=== PATIENT | male | born 1980 | race Caucasian/White ===

== ENCOUNTER 2020-03-13 03:14 | Inpatient (IN) | payer OTHER ==
[~2020-03-13] VITALS: Ht 172.7 cm; Wt 92.5 kg
[2020-03-13 03:18] VITALS: BP 156/94
--- NOTE | 2020-03-13 03:24 | NUR ---
PT AMBULATED TOP ER BED 7 Addendum: 03/13/20 at 0324 by MEDAJR PT AMBULATED TO ER BED 7
--- NOTE | 2020-03-13 03:32 | NUR ---
39M PT HAS C/O EPIGASTRIC ABD PAIN 8/10 SHARP, CONTINOUS X 1 DAY. PT ADMITS TO BRIGHT RED STOOL, AND DIARRHEA X 2 DAYS. PT DENIES N/V. ABDOMEN FIRM AND TENDER. PT HAD APPENDECTOMY X 30 YEARS AGO. AFEBRILE. NEGATIVE COVID SCREEN. PMHX: HTN, APPENDECTOMY RX: OTC MEDS FOR HEARTBURN
--- NOTE | 2020-03-13 03:33 | NUR ---
ERMD BEDSIDE EVALUATING PT
[2020-03-13] MEDS ORDERED: NACL 0.9% 1,000 ML IV ONE (03:35)
[2020-03-13] MEDS ORDERED: MORPHINE SULFATE 2 MG/ML SYR IVP ONE (03:35)
[2020-03-13] MEDS ORDERED: KETOROLAC 30 MG/ML VIAL IVP ONE (03:35)
[2020-03-13] MEDS ORDERED: PANTOPRAZOLE 40 MG INJ VIAL IVP ONE (03:35)
--- NOTE | 2020-03-13 03:44 | NUR ---
PT TAKEN TO CT VIA W/C
[2020-03-13 03:52] LABS: BASOPHILS # (AUTO) 0.1 K/uL (0.00-0.22); BASOPHILS % (AUTO) 0.8 % (0.0-2.0); EOSINOPHILS # (AUTO) 0.4 K/uL (0-0.4); EOSINOPHILS % (AUTO) 3.9 % (0.0-4.0); HEMATOCRIT 40.5 % (36-52); HEMOGLOBIN 13.3 g/dL (12.0-18.0); LYMPHOCYTES # (AUTO) 1.5 K/uL (2.0-11.5); LYMPHOCYTES % (AUTO) 13.8 % (20.5-51.1); MEAN CORPUSCULAR HEMOGLOBIN 20 pg (27-31); MEAN CORPUSCULAR HGB CONC 33 g/dL (33-37); MEAN CORPUSCULAR VOLUME 60.5 fL (80-94); MONOCYTES # (AUTO) 0.8 K/uL (0.8-1.0); MONOCYTES % (AUTO) 7.1 % (1.7-9.3); NEUTROPHILS # (AUTO) 8.2 K/uL (1.8-7.7); NEUTROPHILS % (AUTO) 74.4 % (42.2-75.2); PLATELET COUNT (AUTO) 208 K/uL (140-450); RED CELL DISTRIBUTION WIDTH 15.4 % (11.6-13.7)
--- NOTE | 2020-03-13 03:56 | NUR ---
PT RETURNED FROM CT
--- NOTE | 2020-03-13 04:12 | NUR ---
PT MEDICATED WITH TORADOL, MORPHINE AND PROTONIX VIA R AC IV. PT TOLERATED PROCEDURE WELL. FLUID NS BOLUS INFUSION INITIATED. PT IN BED RESTING. HOB ELEVATED, NO FURTHER NEEDS AT THIS TIME. BED LOWEST AND LOCKED, RAILS UP X1
[2020-03-13 04:15] LABS: PROTHROMBIN TIME 8.9 secs (10.8-13.4)
[2020-03-13 04:15] LABS: APPEARANCE,URINE CLEAR (CLEAR); BILIRUBIN,URINE NEGATIVE (NEGATIVE); BLOOD, URINE NEGATIVE (NEGATIVE); COLOR,URINE YELLOW (YELLOW); LEUKOCYTE ESTERASE ,URINE NEGATIVE (NEGATIVE); NITRITE, URINE NEGATIVE (NEGATIVE); PH,URINE 7.5 (5.0-9.0); UGLUCOSE NEGATIVE (NEGATIVE)
[2020-03-13 04:18] LABS: ALBUMIN 4.8 g/dL (3.4-5.0); ANION GAP 17.9 (8-16); CARBON DIOXIDE 23.9 mmol/L (21-32); CREATININE 0.9 mg/dL (0.6-1.3)
[2020-03-13 04:22] LABS: POTASSIUM 2.8 mmol/L (3.5-5.1)
--- NOTE | 2020-03-13 04:22 | NUR ---
CRITICAL LAB VALUE POTASSIUM 2.8. DR. MAN NOTIFIED
[2020-03-13] MEDS ORDERED: NITROGLYCERIN 2% 1 GM PKT TP ONE (04:30)
[2020-03-13] MEDS ORDERED: ASPIRIN 81 MG TAB.CHEW PO ONE (04:30)
[2020-03-13] MEDS ORDERED: POTASSIUM CHLORIDE 10 MEQ TABER PO ONE ×2 (04:35→06:40)
[2020-03-13] MEDS ORDERED: ORE25 PO (04:42)
[2020-03-13] MEDS ORDERED: ACET-8983 PO (04:42)
[2020-03-13] MEDS ORDERED: LISI-420 PO (04:42)
[2020-03-13] MEDS ORDERED: OMEP20EC11 PO (04:42)
--- NOTE | 2020-03-13 04:45 | NUR ---
PT MEDICATED WITH 2 BABY ASPIRINS, 40MEQ K-DUR, AND NITRO APPLIED TO LEFT CHEST WALL 1 INCH. NO FURTHER NEEDS AT THIS TIME.
--- NOTE | 2020-03-13 04:49 | NUR ---
PT REPORTS DECREASED PAIN FROM 10/10 TO 6/10 AND TOLERABLE.
[2020-03-13 06:10] VITALS: BP 139/93
--- NOTE | 2020-03-13 06:15 | NUR ---
RECEIVED BEDSIDE REPORT FROM ED RN FOR PT'S CONTINUITY OF CARE. 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 PER ED RN AND CONFIRMED PLACEMENT, NITRO PATCH IN PLACE ON LEFT UPPER CHEST APPLIED AT 0440. ORIENTED PT TO THE HOSPITAL SURROUNDINGS AND EXPLAINED THE HOSPITAL ROUTINE, PT VERBALIZED UNDERSTANDING. VS CHECKED AND CHARTED. SAFETY MEASURES IN PLACE, AND CALL LIGHT IS WITHIN REACH. WILL ENDORSE PT TO AM SHIFT RN FOR PT'S CONTINUITY OF CARE.
--- NOTE | 2020-03-13 06:18 | NUR ---
Patient will be admitted to care of DR BARBOUR. Admited to TELE. Will go to room 111A. Belongings list completed. Report to MICHAEL DEVINE.
[2020-03-13] MEDS ORDERED: ACETAMINOPHEN 325 MG TAB PO PRN (06:45)
[2020-03-13] MEDS ORDERED: DOCUSATE SODIUM 100 MG GELCAP PO PRN (06:45)
[2020-03-13] MEDS ORDERED: ONDANSETRON 4 MG/2 ML VIAL IM/IVP PRN (06:45)
--- NOTE | 2020-03-13 07:05 | NUR ---
RECEIVED BEDSIDE REPORT FROM NIGHTSHIFT NURSE. PT RESTING IN BED UPON ARRIVAL. RESPIRATIONS EVEN AND UNLABORED WITH NO SOB OR RESPIRATORY DISTRESS. SKIN WARM AND DRY TO TOUCH. IV SITE IN RAC 18G IS CLEAN, DRY, AND INTACT. SAFETY MEASURES IN PLACE. WILL CONTINUE TO MONITOR
[2020-03-13] MEDS: MORPHINE SULFATE 2 MG/ML SYR IVP PRN ×4 (08:08→22:01)
--- NOTE | 2020-03-13 08:12 | NUR ---
ADMINISTERED SCHED MED PRESCRIBED PER MD ORDER. PT TOLERATED WELL. PT ALSO COMPLAINED OF SEVERE PAIN. PRN PAIN MEDICATION ADMINISTERED PRESCRIBED PER MD ORDER. WASTE WAS VERIFIED WITH SECOND RN. MEDICATION EDUCATION PERFORMED. PT VERBALIZED UNDERSTANDING. SAFETY MEASURE IN PLACE. WILL CONTINUE TO MONITOR
[2020-03-13] MEDS ORDERED: POTASSIUM CHLORIDE 10 MEQ TABER PO SCH (09:00)
[2020-03-13 09:01] LABS: BARBITURATE, URINE NEGATIVE ng/ml (NEG <=200); BENZODIAZEPINE, URINE NEGATIVE ng/mL (NEG <=200); CANNABINOID, URINE NEGATIVE ng/mL (NEG <=50); COCAINE, URINE NEGATIVE ng/mL (NEG <=300); OPIATE, URINE POSITIVE ng/mL (NEG <=2000); PHENCYCLIDINE SCREEN,URINE NEGATIVE ng/mL (NEG <=25)
--- NOTE | 2020-03-13 09:06 | NUR ---
PATIENT HAS BEEN SCREENED AND CATEGORIZED MODERATE NUTRITION RISK. PATIENT WILL BE SEEN WITHIN 3-5 DAYS OF ADMISSION. 03/15/20 03/17/[address]
[2020-03-13 09:08] LABS: AMYLASE 51 U/L (25-115); CHOL/HDL RATIO 4.8 (1-4.5); FREE T4 (FREE THYROXINE) 1.52 ng/dL (0.76-1.46); HDL CHOLESTEROL 39 mg/dL (40-60); MAGNESIUM 2.4 mg/dL (1.8-2.4); PHOSPHORUS 3.6 mg/dL (2.5-4.9); TRIGLYCERIDES 939 mg/dL (30-150)
[2020-03-13] MEDS: NACL 0.9% 1,000 ML IV SCH ×2 (09:24→16:55)
[2020-03-13 09:45] LABS: LIPASE 383 U/L (73-393)
--- NOTE | 2020-03-13 09:45 | NUR ---
PT FAMILY BROUGHT IN BLACK BACKPACK FOR PT. BACKPACK GIVEN TO PATIENT. SAFETY MEASURES IN PLACE. WILL CONTINUE TO MONITOR
[2020-03-13] MEDS ORDERED: LORazepam 2 MG/ML VIAL IM/IVP PRN (09:50)
[2020-03-13] MEDS ORDERED: DICYCLOMINE HCL LIQUID 20 MG, ALUMINUM HYD/MAG/SIMETHICONE 30 ML, LIDOCAINE VISCOUS 2% ... PO SCH ×3 (10:00)
[2020-03-13 10:06] LABS: THYROID STIMULATING HORMONE 2.98 uIU/mL (0.34-3.74)
[2020-03-13] MEDS ORDERED: DICYCLOMINE HCL LIQUID 10 MG/5 ML UDC ONE (10:36)
[2020-03-13] MEDS ORDERED: ALUMINUM HYD/MAG/SIMETHICONE 30 ML UDC ONE (10:37)
[2020-03-13] MEDS ORDERED: LIDOCAINE VISCOUS 2% 20 ML UDC ONE (10:37)
--- NOTE | 2020-03-13 10:40 | NUR ---
ADMINISTERED SCHED MED PRESCRIBED PER MD ORDER. PT TOLERATED WELL. MEDICATION EDUCATION PERFORMED. PT VERBALIZED UNDERSTANDING. SAFETY MEASURE IN PLACE. WILL CONTINUE TO MONITOR
--- NOTE | 2020-03-13 10:43 | NUR ---
DC PLANNIN YRS OLD MALE PATIENT WAS ADMITTED FROM HOME WITH A DX OF CHEST PAIN R/O ACS. PT HAS NO MEDICAL HISTORY . TROP 0.050,0.068 AND PENDING FOR THE 3RD TROP, K+ 2.9 40 MG PO POTASSIUM GIVEN. . CXR NEGATIVE CT ABD/PELVIS SHOWED NO BOWEL OBSTRUCTION AND LARGE FATTY INFILTRATED LIVER. CONSULTED WITH BLADE GROOVER DR SAMUEL . DC PLAN TO GO HOME WHEN STABLE CM TO FOLLOW.
[2020-03-13] MEDS ORDERED: LISINOPRIL 20 MG TAB PO SCH (11:10)
[2020-03-13] MEDS ORDERED: PANTOPRAZOLE 40 MG INJ VIAL IVP SCH (11:10)
--- NOTE | 2020-03-13 11:45 | NUR ---
HOURLY ROUNDING. PT RESTING IN BED UPON ARRIVAL. ABLE TO MAKE NEEDS KNOWN. RESPIRATIONS EVEN AND UNLABORED WITH NO SOB OR RESPIRATORY DISTRESS. SKIN WARM AND DRY TO TOUCH. SAFETY MEASURES IN PLACE. WILL CONTINUE TO MONITOR
--- NOTE | 2020-03-13 11:55 | NUR ---
Blood Bank Worker Note: Basic Screen: Yes High Risk DC Screen [place]: KYLAH CONRAD Home Relationship: Pre-Admission Living Arrangements: Lives with Other Prior ADL Independent Current Home Health Name/Tel: N/A Current DME/02 Name/Tel: N/A Current Hospice Name/Tel: N/A Current Dialysis Name/Tel: N/A Healthcare Decision Maker: Patient Advance Directive No Physician Orders for Life Sustaining Treatment Form No Patient/Family Have Educational Needs No Discipline: Case Mgt/Social Svcs Tentative Discharge Plan/Destination: No Needs Identified Will require assistance post discharge: No Referred to Fraternity Adviser: No Tentative Discharge Plan Summary: Patient is a 39-year-old male admitted for chest pain. Patient has PMHX of hypertension. Patientw as admitted from home where he lives with his and children. SW contacted patient's Kylah Conrad [phone] to verify demographics. Per Kylah, patient is independent with ADLs and reports episodes of PTSD. Kylah stated that patient does not require mental health services. Kylah reports no history of substance abuse. Tentative discharge plan is for patient to return home. No further needs identified. Signature: MONY Ulrich Date: Mar 13, 2020 Time: 11:52
[2020-03-13 12:00] VITALS: BP 131/83
[2020-03-13] MEDS: SUCRALFATE 1 GM TAB PO SCH ×3 (12:32→20:46)
--- NOTE | 2020-03-13 12:33 | NUR ---
PT CALLED AND COMPLAINED OF SEVERE PAIN. PRN PAIN MEDICATION ADMINISTERED PRESCRIBED PER MD ORDER. PT TOLERATED WELL. MEDICATION EDUCATION PERFORMED. PT VERBALIZED UNDERSTANDING. SAFETY MEASURES IN PLACE. WILL CONTINUE TO MONITOR
[2020-03-13 13:58] LABS: BASOPHILS # (AUTO) 0.1 K/uL (0.00-0.22); BASOPHILS % (AUTO) 0.9 % (0.0-2.0); EOSINOPHILS # (AUTO) 0.2 K/uL (0-0.4); EOSINOPHILS % (AUTO) 1.8 % (0.0-4.0); HEMATOCRIT 40.3 % (36-52); HEMOGLOBIN 12.8 g/dL (12.0-18.0); LYMPHOCYTES # (AUTO) 1.4 K/uL (2.0-11.5); LYMPHOCYTES % (AUTO) 10.3 % (20.5-51.1); MEAN CORPUSCULAR HEMOGLOBIN 20 pg (27-31); MEAN CORPUSCULAR HGB CONC 32 g/dL (33-37); MEAN CORPUSCULAR VOLUME 61.5 fL (80-94); MONOCYTES # (AUTO) 0.8 K/uL (0.8-1.0); MONOCYTES % (AUTO) 5.5 % (1.7-9.3); NEUTROPHILS # (AUTO) 11.4 K/uL (1.8-7.7); NEUTROPHILS % (AUTO) 81.5 % (42.2-75.2); PLATELET COUNT (AUTO) 212 K/uL (140-450); RED BLOOD CELL COUNT(AUTO) 6.55 MIL/uL (4.20-6.10); RED CELL DISTRIBUTION WIDTH 16.1 % (11.6-13.7); WHITE BLOOD COUNT (AUTO) 13.9 K/uL (4.8-10.8)
--- NOTE | 2020-03-13 14:15 | NUR ---
PT CALLED AND SAID THAT HE HAD A BOWEL MOVEMENT. STOOL SAMPLE AND OCCULT BLOOD COLLECTED AND SENT TO LAB. SAFETY MEASURES IN PLACE. WILL CONTINUE TO MONITOR
[2020-03-13 14:25] LABS: ANION GAP 17.5 (8-16); CARBON DIOXIDE 21.6 mmol/L (21-32); CREATININE 0.8 mg/dL (0.6-1.3); POTASSIUM 4.1 mmol/L (3.5-5.1)
[2020-03-13 16:00] VITALS: BP 136/74
--- NOTE | 2020-03-13 16:56 | NUR ---
ADMINISTERED SCHED MED PRESCRIBED PER MD ORDER. PT TOLERATED WELL. MEDICATION EDUCATION PERFORMED. PT VERBALIZED UNDERSTANDING. PT CALLED AND COMPLAINED OF SEVERE PAIN. PRN PAIN MEDICATION ADMINISTERED PRESCRIBED PER MD ORDER. PT TOLERATED WELL. MEDICATION EDUCATION PERFORMED. PT VERBALIZED UNDERSTANDING. SAFETY MEASURES IN PLACE. WILL CONTINUE TO MONITOR
--- NOTE | 2020-03-13 19:07 | NUR ---
ENDORSED AT BEDSIDE TO NIGHTSHIFT NURSE. PT IS STABLE
--- NOTE | 2020-03-13 19:08 | NUR ---
RECEIVED BEDSIDE REPORT FROM DAY SHIFT NURSE, PT AAOX4. NO SOB NOTED. IV SITE ON RAC, 18G, PATENT, INTACT, AND ASYMPTOMATIC. BOARD UPDATED, SKIN INTACT, WARM AND DRY TO TOUCH. POC REVIEWED AND PT VERBALIZED UNDERSTANDING. SAFETY MEASURES IN PLACE. CALL LIGHT IN REACH. WILL CONTINUE TO MONITOR.
[2020-03-13 20:00] VITALS: BP 116/71
[2020-03-13] MEDS: METOPROLOL 25 MG TAB PO SCH (20:45)
[2020-03-13] MEDS: ATORVASTATIN 20 MG TAB PO SCH (20:46)
--- NOTE | 2020-03-13 20:48 | NUR ---
GIVEN LIPITOR, METOPROLOL, AND CARAFATE MD ORDERED. PT TOLERATED WELL.
--- NOTE | 2020-03-13 22:01 | NUR ---
PT C/O ABD PAIN 06/29, GIVEN MORPHINE MD ORDERED. PT TOLERATED WELL.
[2020-03-14] VITALS: BP 119/73
--- NOTE | 2020-03-14 00:02 | NUR ---
VS CHECKED, WITHIN PT'S BASELINE. WILL CONTINUE TO MONITOR.
[2020-03-14] MEDS: NACL 0.9% 1,000 ML IV SCH ×2 (00:54→13:51)
--- NOTE | 2020-03-14 02:36 | NUR ---
PT SLEEPING IN BED COMFORTABLY. NO ACUTE DISTRESS NOTED.
[2020-03-14 04:00] VITALS: BP 111/75
--- NOTE | 2020-03-14 04:00 | NUR ---
VS CHECKED, WITHIN PT'S BASELINE, WILL CONTINUE TO MONITOR.
--- NOTE | 2020-03-14 06:02 | NUR ---
PT SLEEPING IN BED COMFORTABLY. NO ACUTE DISTRESS NOTED.
[2020-03-14 06:05] LABS: ANION GAP 15.4 (8-16); CARBON DIOXIDE 22.6 mmol/L (21-32); CREATININE 0.7 mg/dL (0.6-1.3)
[2020-03-14 06:36] LABS: CHOL/HDL RATIO 3.6 (1-4.5)
[2020-03-14 06:42] LABS: BASOPHILS # (AUTO) 0.1 K/uL (0.00-0.22); BASOPHILS % (AUTO) 0.6 % (0.0-2.0); EOSINOPHILS # (AUTO) 0.2 K/uL (0-0.4); EOSINOPHILS % (AUTO) 1.8 % (0.0-4.0); HEMATOCRIT 34.4 % (36-52); HEMOGLOBIN 10.8 g/dL (12.0-18.0); LYMPHOCYTES # (AUTO) 1.2 K/uL (2.0-11.5); LYMPHOCYTES % (AUTO) 10.4 % (20.5-51.1); MEAN CORPUSCULAR HEMOGLOBIN 20 pg (27-31); MEAN CORPUSCULAR HGB CONC 32 g/dL (33-37); MEAN CORPUSCULAR VOLUME 61.9 fL (80-94); MONOCYTES # (AUTO) 0.7 K/uL (0.8-1.0); MONOCYTES % (AUTO) 6.7 % (1.7-9.3); NEUTROPHILS % (AUTO) 80.5 % (42.2-75.2); PLATELET COUNT (AUTO) 185 K/uL (140-450); RED BLOOD CELL COUNT(AUTO) 5.56 MIL/uL (4.20-6.10); RED CELL DISTRIBUTION WIDTH 15.8 % (11.6-13.7); WHITE BLOOD COUNT (AUTO) 11.2 K/uL (4.8-10.8)
--- NOTE | 2020-03-14 06:57 | NUR ---
PT IN STABLE CONDITION. WILL ENDORSE TO DAY SHIFT NURSE FOR CONTINUOUS CARE.
--- NOTE | 2020-03-14 07:15 | NUR ---
RECEIVED PT FROM SHEET HEATER HELPER NURSEYESICA, PT IS AWAKE AND ON ROOM AIR, SIDE RAILS ARE UP AND CALL LIGHT WITHIN REACH, IV LINE ON THE RT AC G. 18 WITH NS INFUSING AT 120ML/HR, INTACT, PT DENIES PAIN AND NO SOB NOTED, WILL CONTINUE TO MONITOR PT.
[2020-03-14 08:00] VITALS: BP 119/71
[2020-03-14] MEDS: ECOTRIN 81 MG TABEC PO SCH (08:18)
[2020-03-14] MEDS: SUCRALFATE 1 GM TAB PO SCH ×4 (08:19→21:32)
[2020-03-14] MEDS: HYDROCHLOROTHIAZIDE 25 MG TAB PO SCH (08:20)
[2020-03-14] MEDS: PANTOPRAZOLE 40 MG TABEC PO SCH (08:20)
[2020-03-14] MEDS: MULTIVITAMIN 1 TAB PO SCH (08:20)
--- NOTE | 2020-03-14 08:20 | NUR ---
PT IS AWAKE AND BP IS 120/68, PULSE IS 84 MANUALLY, O2 SATURATION IS AT 100% ON ROOM AIR, PT WAS GIVEN AM SCHEDULED MEDICATIONS, TOLERATED MEDS, NO DISTRESS NOTED. WILL MONITOR PT
[2020-03-14] MEDS: THIAMINE 100 MG TAB PO SCH (08:21)
[2020-03-14] MEDS: METOPROLOL 25 MG TAB PO SCH ×2 (08:21→21:33)
[2020-03-14] MEDS: LISINOPRIL 20 MG TAB PO SCH (08:21)
--- NOTE | 2020-03-14 10:45 | NUR ---
PT IS SLEEPING RIGHT NOW, NO DISTRESS NOTED.
[2020-03-14 12:00] VITALS: BP 116/80
--- NOTE | 2020-03-14 13:51 | NUR ---
PT WAS GIVEN THE SCHEDULED MEDICATIONS NOW.
[2020-03-14] MEDS ORDERED: SIMETHICONE 80 MG TAB.CHEW PO SCH (15:30)
[2020-03-14 16:00] VITALS: BP 115/71
--- NOTE | 2020-03-14 16:34 | NUR ---
PT WAS GIVEN MEDICATIONS TO RELIEVE GAS PAIN NOW AND REDUCE ACIDITY IN STOMACH, TOLERATED AND WILL MONITOR PT.
--- NOTE | 2020-03-14 19:35 | NUR ---
ENDORSED PT TO QUARRY PLUG AND FEATHER DRILLER NURSE FOR CONTINUITY OF CARE.
--- NOTE | 2020-03-14 19:40 | NUR ---
RECEIVED PT IN STABLE CONDITION FROM AM NURSE. ON TELE MONITOR -SR. WITH NO C/O ANY DISCOMFORT NOR. PAIN HAS IVF INFUSING WELL ON THE RT AC G#18. CLEAR AND PATENT. PLAN OF CARE DISCUSSED AND VERBALIZED UNDERSTANDING. BE DON LOW POSITION. COOK RELIEF ALS UP X2 AND CALL LIGHT PLACED WITHIN REACH. WILL CONTINUE TO MONITOR.
[2020-03-14 20:00] VITALS: BP 114/79
[2020-03-14] MEDS ORDERED: SIMETHICONE 80 MG TAB.CHEW PO PRN (20:00)
[2020-03-14] MEDS: ATORVASTATIN 20 MG TAB PO SCH (21:33)
[2020-03-14] MEDS ORDERED: CRUSHER, PILL MC ONE (21:35)
--- NOTE | 2020-03-14 22:00 | NUR ---
PT IS AWAKE. PROVIDE WITH URINAL TO BE USED AT NIGHT.
[2020-03-15 00:10] VITALS: BP 102/60
--- NOTE | 2020-03-15 00:20 | NUR ---
VITAL SIGNS STABLE. NO C/O ANY PAIN NOTED. WILL CONTINUE TO MONITOR.
--- NOTE | 2020-03-15 02:30 | NUR ---
DEANNA HARRINGTON. PT ASLEEP. NO S/S OF ANY DISCOMFORT NOTED.
[2020-03-15 04:08] VITALS: BP 107/65
--- NOTE | 2020-03-15 05:00 | NUR ---
PT IS SLEEPING WELL. NO S/S OF ANY DISCOMFORT NOTED.
--- NOTE | 2020-03-15 07:30 | NUR ---
ENDORSED PT IN STABLE CONDITION TO AM NURSE.
--- NOTE | 2020-03-15 07:31 | NUR ---
RECEIVED REPORT FROM NIGHT NURSE FOR CONTINUITY OF CARE, PT IS ASLEEP, NO SIGNS OF DISTRESS NOTED, RESPIRATIONS ARE AND UNLABORED ON ROOM AIR, PT HAS RIGHT AC 18G SALINE LOCK, BED IN LOW POSITION, SAFETY MEASURES IN PLACE, UPDATED WHITEBOARD, ALL NEEDS MET AT THIS TIME, WILL CONTINUE TO MONITOR, CALL LIGHT WITHIN REACH.
[2020-03-15 08:00] VITALS: BP 115/88
[2020-03-15 08:35] LABS: ANION GAP 14.2 (8-16); CARBON DIOXIDE 26.9 mmol/L (21-32); CREATININE 0.6 mg/dL (0.6-1.3); POTASSIUM 4.1 mmol/L (3.5-5.1)
[2020-03-15] MEDS: PANTOPRAZOLE 40 MG TABEC PO SCH (08:36)
[2020-03-15] MEDS: ECOTRIN 81 MG TABEC PO SCH (08:36)
[2020-03-15] MEDS: METOPROLOL 25 MG TAB PO SCH (08:38)
[2020-03-15] MEDS: HYDROCHLOROTHIAZIDE 25 MG TAB PO SCH (08:38)
[2020-03-15] MEDS: SUCRALFATE 1 GM TAB PO SCH ×2 (08:38→13:16)
[2020-03-15] MEDS: THIAMINE 100 MG TAB PO SCH (08:39)
[2020-03-15] MEDS: LISINOPRIL 20 MG TAB PO SCH (08:39)
[2020-03-15] MEDS: MULTIVITAMIN 1 TAB PO SCH (08:39)
--- NOTE | 2020-03-15 08:41 | NUR ---
ADMINISTERED SCHEDULED MEDICATION, MEDICATION EDUCATION GIVEN, PT VERBALIZED UNDERSTANDING, PT TOLERATED MEDICATION WELL, PT STABLE, CALL LIGHT WITHIN REACH.
[2020-03-15 08:45] LABS: BASOPHILS # (AUTO) 0.1 K/uL (0.00-0.22); BASOPHILS % (AUTO) 0.6 % (0.0-2.0); EOSINOPHILS # (AUTO) 0.3 K/uL (0-0.4); EOSINOPHILS % (AUTO) 2.9 % (0.0-4.0); HEMATOCRIT 34.9 % (36-52); HEMOGLOBIN 11.1 g/dL (12.0-18.0); LYMPHOCYTES # (AUTO) 1.8 K/uL (2.0-11.5); LYMPHOCYTES % (AUTO) 18.1 % (20.5-51.1); MEAN CORPUSCULAR HEMOGLOBIN 20 pg (27-31); MEAN CORPUSCULAR HGB CONC 32 g/dL (33-37); MEAN CORPUSCULAR VOLUME 62.3 fL (80-94); MONOCYTES # (AUTO) 0.9 K/uL (0.8-1.0); NEUTROPHILS # (AUTO) 6.9 K/uL (1.8-7.7); NEUTROPHILS % (AUTO) 69.4 % (42.2-75.2); PLATELET COUNT (AUTO) 195 K/uL (140-450); RED BLOOD CELL COUNT(AUTO) 5.61 MIL/uL (4.20-6.10); RED CELL DISTRIBUTION WIDTH 15.8 % (11.6-13.7); WHITE BLOOD COUNT (AUTO) 9.9 K/uL (4.8-10.8)
[2020-03-15 08:57] LABS: MAGNESIUM 2.1 mg/dL (1.8-2.4); PHOSPHORUS 4.3 mg/dL (2.5-4.9)
--- NOTE | 2020-03-15 11:20 | NUR ---
PT AWAKE AND RESTING IN BED, PT IS STABLE, NO SIGNS OF DISTRESS NOTED, RESPIRATIONS ARE EVEN AND UNLABORED, CALL LIGHT WITHIN REACH.
[2020-03-15 12:00] VITALS: BP 133/64
--- NOTE | 2020-03-15 13:17 | NUR ---
ADMINISTERED SCHEDULED MEDICATION, MEDICATION EDUCATION GIVEN, PT VERBALIZED UNDERSTANDING, PT IS STABLE, NO SIGNS OF DISTRESSED NOTED, CALL LIGHT WITHIN REACH.
--- NOTE | 2020-03-15 13:55 | NUR ---
PT DISCHARGED HOME, DISCHARGED INSTRUCTIONS GIVEN, IV REMOVED, IV INTACT, NO BLEEDING AT THE IV SITE, PT STABLE, PT AMBULATED TO LOBBY WITH STEADY GAIT.
== END 2020-03-15 14:02 | disposition home or self-care (01) | DRG 391 ==
LOC: MED 03:14 → MTU 05:37
PROVIDERS: ADMIT General Practice; ATTEND General Practice
DX: K29.20 Alcoholic gastritis without bleeding (principal); I21.A1 Myocardial infarction type 2; E87.1 Hypo-osmolality and hyponatremia; E87.6 Hypokalemia; I10 Essential (primary) hypertension; I16.0 Hypertensive urgency; E66.9 Obesity, unspecified; E78.1 Pure hyperglyceridemia; E05.90 Thyrotoxicosis, unspecified without thyrotoxic crisis or storm; K76.0 Fatty (change of) liver, not elsewhere classified; G89.29 Other chronic pain; M54.9 Dorsalgia, unspecified; F10.10 Alcohol abuse, uncomplicated; F11.90 Opioid use, unspecified, uncomplicated; Y90.9 Presence of alcohol in blood, level not specified; K21.9 Gastro-esophageal reflux disease without esophagitis; Z68.31 Body mass index [BMI] 31.0-31.9, adult; D72.829 Elevated white blood cell count, unspecified; R74.0 Nonspecific elevation of levels of transaminase and lactic acid dehydrogenase [LDH]; F43.9 Reaction to severe stress, unspecified; Z79.899 Other long term (current) drug therapy; Z90.49 Acquired absence of other specified parts of digestive tract
CPT/HCPCS: 36415; 71045; 76705; 80048; 80053; 80305; 81003; 82150; 82272; 83036; 83605; 83690; 83735; 83880; 84100; 84134; 84439; 84443; 84484; 85025; 85610; 85730; 87040; 87070; 87081; 96374; 96375; 99285; C9113; J1885; J2270; J7030; Q0092

== ENCOUNTER 2020-07-05 13:11 | Emergency (ER) | payer OTHER ==
[~2020-07-05] VITALS: Ht 175.3 cm; Wt 86.2 kg
[~2020-07-05 13:11] MED LIST: ACET-8983 PO; LISI-420 PO; OMEP20EC11 PO; ORE25 PO
[2020-07-05 13:25] VITALS: BP 153/99
--- NOTE | 2020-07-05 13:30 | NUR ---
Pt w/c assisted to bed 9. Placed in COVID precautions.
--- NOTE | 2020-07-05 13:35 | NUR ---
40/M presents to ED with complaints of dizziness, numbness and tingling starting approximately 2 hours prior to arrival. Patient states the numbness started suddenly while sitting at home and gradually progressed radiating up arms to back of head. Patient states "I feel weak. I feel like I'm going to pass out." Pt noted with an unsteady gait. Pt states "Last time I felt like this I was dehydrated while I was in [place]." Pt states she checked his BP and HR at home and states his HR was 117. HR at this time 99. Pt denies chest pain. Pt reports feeling SOB, SP02 100%. Respirations even and unlabored. Denies vision changes. Second Officer and pushes are strong and equal bilaterally. No facial droop noted. Speech is clear. Pt placed in a gown, on quality assurance monitor final, pulse oximetry and blood pressure monitoring, VSS.
--- NOTE | 2020-07-05 13:43 | NUR ---
Dr. Arreguin made aware of patient and given report.
== END 2020-07-05 14:00 | disposition home or self-care (01) ==
LOC: MED 13:11
DX: F41.0 Panic disorder [episodic paroxysmal anxiety] (principal); I10 Essential (primary) hypertension; Z79.899 Other long term (current) drug therapy
CPT/HCPCS: 99281

== ENCOUNTER 2021-04-08 16:54 | Emergency (ER) | payer OTHER ==
[~2021-04-08] VITALS: Ht 175.3 cm; Wt 90.3 kg
[~2021-04-08 16:54] MED LIST changes: +HYDR-4004 PO; -LISI-420 PO; +LISI-487 PO; -ORE25 PO
[2021-04-08 16:57] VITALS: BP 153/105
--- NOTE | 2021-04-08 17:05 | NUR ---
Pt ambulated to bed 3.
--- NOTE | 2021-04-08 17:05 | NUR ---
Pt ambulated to ER bed 3.
--- NOTE | 2021-04-08 17:07 | NUR ---
40 Y/O MALE REFERRED BY [facility] FOR ALCOHOL WITHDRAWS. PT STATES HE HAS NOT BEEN SOBER FOR MORE THAN 2 DAYS SINCE 10/2006 DRINKS DAILY 1 PINT AND A HALF OF VODKA. PT STATES HE STOPPED DRINKING X2DAYS AND HAD A PANIC ATTACK, ANXIETY, FLASHBACKS FROM WAR, AND +CHILLS. PT DENIES N/V, DENIES FEVER, DENIES SEIZURES. PMH: HTN, PTSD, ANXIETY, STAGE II LIVER DISEASE, SMOKES 1PPD NKA
--- NOTE | 2021-04-08 17:21 | NUR ---
Dr. Hoang at pt bedside for further evaluation.
[2021-04-08] MEDS ORDERED: LIB25 PO (17:31)
[2021-04-08] MEDS ORDERED: ONDA8TAB87 PO (17:31)
--- NOTE | 2021-04-08 17:36 | NUR ---
Patient discharged with v/s stable. Written and verbal after care instructions given and explained. Patient alert, oriented and verbalized understanding of instructions. Ambulatory with steady gait. All questions addressed prior to discharge. ID band removed. Patient advised to follow up with PMD. Rx of LIBRIUM PO AND ZOFRAN PO 4MG Q8H PRN N/V given. Patient educated on indication of medication including possible reaction and side effects. Opportunity to ask questions provided and answered.
[2021-04-08 17:48] VITALS: BP 153/105
== END 2021-04-08 17:36 | disposition home or self-care (01) ==
LOC: MED 16:54
DX: F10.239 Alcohol dependence with withdrawal, unspecified (principal); R68.83 Chills (without fever); F17.200 Nicotine dependence, unspecified, uncomplicated; I10 Essential (primary) hypertension; Z90.49 Acquired absence of other specified parts of digestive tract; Z79.899 Other long term (current) drug therapy
CPT/HCPCS: 99283

== ENCOUNTER 2021-05-02 13:55 | Emergency (ER) | payer OTHER ==
[~2021-05-02] VITALS: Ht 175.3 cm; Wt 90.3 kg
[~2021-05-02 13:55] MED LIST changes: +LIB25 PO; +ONDA8TAB87 PO
[2021-05-02 13:58] VITALS: BP 174/106
--- NOTE | 2021-05-02 15:08 | NUR ---
PT TO ER BED 1.
--- NOTE | 2021-05-02 15:12 | NUR ---
Dr. Hoang at pt bedside for further evaluation.
[2021-05-02] MEDS ORDERED: NACL 0.9% 1,000 ML IV ONE (15:20)
--- NOTE | 2021-05-02 15:57 | NUR ---
40 Y/O MALE C/O CHEST TIGHTNESS, SOB, RAPID HEATBEAT X2 DAYS. PT STATES HE CHECK HIS BP AND IT WAS 78/61, HR 114, AND FELT LIGHTHEADED. CALLED NURSE HOTLINE AT [facility] AND WAS TOLD TO COME IN. ALCOHOLIC, LAST DRINK MONDAY NIGHT. PMH:HTN, STAGE 2 LIVER DISEASE, FATTY LIVER- ALCOHOLIC PSYCH:PTSD, ANXIETY NKA
[2021-05-02] MEDS ORDERED: LIB25 PO (16:56)
[2021-05-02 17:41] VITALS: BP 174/106
--- NOTE | 2021-05-02 17:42 | NUR ---
Patient discharged with v/s stable. Written and verbal after care instructions given foor palpitations and alcohol withdraws and explained. Patient alert, oriented and verbalized understanding of instructions. Ambulatory with steady gait. All questions addressed prior to discharge. ID band removed. Patient advised to follow up with PMD. Rx of librium 25mg podaily for anxiety given. Patient educated on indication of medication including possible reaction and side effects. Opportunity to ask questions provided and answered.
== END 2021-05-02 17:40 | disposition home or self-care (01) ==
LOC: MED 13:55
DX: R00.2 Palpitations (principal); F10.239 Alcohol dependence with withdrawal, unspecified; I10 Essential (primary) hypertension; Z79.899 Other long term (current) drug therapy; Y90.9 Presence of alcohol in blood, level not specified
CPT/HCPCS: 93005; 96360; 99283; J7030

== ENCOUNTER 2021-11-03 14:09 | Emergency (ER) | payer OTHER ==
[~2021-11-03] VITALS: Ht 175.3 cm; Wt 96.4 kg
[2021-11-03 14:27] VITALS: BP 136/82
[2021-11-03] MEDS ORDERED: GABA400C PO (14:36)
[2021-11-03] MEDS ORDERED: ACAM333T PO (14:36)
--- NOTE | 2021-11-03 14:36 | NUR ---
PT TO [facility] LOBBY OK BY JO ANN MONGE
[2021-11-03] MEDS ORDERED: FAMOTIDINE 20 MG TAB PO ONE (14:45)
[2021-11-03] MEDS ORDERED: ALUMINUM HYD/MAG/SIMETHICONE 30 ML UDC PO ONE ×2 (14:45→21:50)
--- NOTE | 2021-11-03 15:07 | NUR ---
pt c/o chest tightness x2 days. stach on monitor. pt reports increase in stress and anxiety, recently quit drinking.
[2021-11-03] MEDS ORDERED: LORazepam 1 MG TAB PO ONE (15:15)
[2021-11-03 15:20] LABS: BASOPHILS # (AUTO) 0.1 K/uL (0.00-0.22); BASOPHILS % (AUTO) 1.1 % (0.0-2.0); EOSINOPHILS # (AUTO) 0.4 K/uL (0-0.4); EOSINOPHILS % (AUTO) 3.9 % (0.0-4.0); HEMATOCRIT 41.7 % (36-52); HEMOGLOBIN 13.7 g/dL (12.0-18.0); LYMPHOCYTES # (AUTO) 1.5 K/uL (2.0-11.5); LYMPHOCYTES % (AUTO) 16.4 % (20.5-51.1); MEAN CORPUSCULAR HEMOGLOBIN 20 pg (27-31); MEAN CORPUSCULAR HGB CONC 33 g/dL (33-37); MEAN CORPUSCULAR VOLUME 61.2 fL (80-94); MONOCYTES % (AUTO) 10.4 % (1.7-9.3); NEUTROPHILS # (AUTO) 6.3 K/uL (1.8-7.7); NEUTROPHILS % (AUTO) 68.2 % (42.2-75.2); PLATELET COUNT (AUTO) 205 K/uL (140-450); RED CELL DISTRIBUTION WIDTH 15.8 % (11.6-13.7); WHITE BLOOD COUNT (AUTO) 9.3 K/uL (4.8-10.8)
[2021-11-03 15:51] LABS: ALBUMIN 5.1 g/dL (3.4-5.0); ANION GAP 14.8 (8-16); CARBON DIOXIDE 26.5 mmol/L (21-32); CREATININE 1.2 mg/dL (0.6-1.3); POTASSIUM 4.3 mmol/L (3.5-5.1); TOTAL BILIRUBIN 1.5 mg/dL (0.0-1.0)
[2021-11-03] MEDS ORDERED: ASPIRIN 81 MG TAB.CHEW PO ONE (16:00)
--- NOTE | 2021-11-03 17:03 | NUR ---
pt resting in [facility] reports decrease in chest tightness, stach on monitor. pending dispo
--- NOTE | 2021-11-03 18:00 | NUR ---
PT TO CT
--- NOTE | 2021-11-03 19:17 | NUR ---
Received report from Daniela DEVINE for continuity of care
[2021-11-03] MEDS ORDERED: NITROGLYCERIN 0.4 MG TAB SL ONE (19:50)
[2021-11-03] MEDS ORDERED: ACETAMINOPHEN 325 MG TAB PO ONE (20:10)
[2021-11-03] MEDS ORDERED: HEPARIN PER PHARMACY MC PRN (20:20)
--- NOTE | 2021-11-03 20:23 | NUR ---
Paige woody in ED - 11/03/21 at 2058 by CHLOE jacquelyn Louis RN for report-- no answer at this time
[2021-11-03 21:07] LABS: PROTHROMBIN TIME 10.3 secs (10.8-13.4)
[2021-11-03] MEDS ORDERED: CYCLOBENZAPRINE 10 MG TAB PO ONE (21:50)
--- NOTE | 2021-11-03 22:01 | NUR ---
patient ambulated to the bathroom with a steady gait
[2021-11-03] MEDS ORDERED: hePARIN / DEXT 5% PREMIX 250 ML IV SCH (22:10)
[2021-11-03] MEDS ORDERED: CYCLOBENZAPRINE 10 MG TAB ONE (23:39)
--- NOTE | 2021-11-03 23:55 | NUR ---
Patient to be transferred to [facility]. Is being transferred due to higher level of care. Receiving facility has accepting physician and available space. ER physician has signed transfer form. Patient or responsible green party has agreed to transfer and signed form. Patient belongings inventoried and will be sent with patient. Copy of nursing notes, lab reports, EKG, Physicians Orders and X-rays to be sent with patient. Report called to Heather DEVINE at receiving facility. [facility] ambulance service has been called for transfer. ETA is 60mins.
--- NOTE | 2021-11-04 00:05 | NUR ---
[facility] TRANSPORT AT BEDSIDE
--- NOTE | 2021-11-04 00:12 | NUR ---
Spoke with an employee at [facility] about D/C of heparin drip due to unavailable nurse to keep an eye on the infusion--- understood by staff member at [facility]
[2021-11-04 00:18] VITALS: BP 128/83
--- NOTE | 2021-11-04 00:18 | NUR ---
PT TAKEN BY [facility] TRANSPORT TO [facility]
== END 2021-11-04 00:18 | disposition short-term general hospital (02) ==
LOC: MED 14:09
DX: I21.4 Non-ST elevation (NSTEMI) myocardial infarction (principal); Z20.822 Contact with and (suspected) exposure to COVID-19; I10 Essential (primary) hypertension; Z79.899 Other long term (current) drug therapy; Z79.891 Long term (current) use of opiate analgesic
CPT/HCPCS: 36415; 71046; 71275; 80053; 82550; 83880; 84484; 85025; 85379; 85610; 85730; 87426; 93005; 96365; 96376; 99291; J1644; Q9967

== ENCOUNTER 2021-11-22 12:10 | Inpatient (IN) | payer OTHER ==
[~2021-11-22] VITALS: Ht 175.3 cm; Wt 90.7 kg
[~2021-11-22 12:10] MED LIST changes: +ACAM333T PO; +GABA400C PO
[2021-11-22 12:17] VITALS: BP 159/100
[2021-11-22] MEDS ORDERED: NACL 0.9% 2,000 ML IV ONE (12:30)
--- NOTE | 2021-11-22 12:37 | NUR ---
FARIDA DELGADO VIA GURNEY TO BED E.
--- NOTE | 2021-11-22 13:02 | NUR ---
41 y/o male states he has been drinking heavily for the past 3 days, state she drank "everything, vodka, beer, tequila". has child at home and was concerned because he was getting roudy per ems. pt states he now wants to go back home and wanted to be home. denying pain at this time. denies n/v/d. skin is pink/warm/dry, does have some notable swelling on right hand; aaox2 with overestimates on gait, gait unsteady; lungs clear bl; hr even and regular; pt denies any fever, cp, sob, or cough at this time; patient states pain of 0/10 at this time; patient positioned for comfort; hob elevated; bedrails x2; bed down. ermd made aware of pt status. pmh: ptsd, htn, non st elevation mi, liver disease nka med: denies
--- NOTE | 2021-11-22 13:20 | NUR ---
raymond castellanos was notifed per raulito for pt safety concern that he left. pt left ama at this time
[2021-11-22] MEDS ORDERED: HALOPERIDOL IM 5 MG/ML VIAL IM ONE (13:55)
[2021-11-22] MEDS ORDERED: LORazepam 2 MG/ML VIAL IM ONE (13:55)
[2021-11-22] MEDS ORDERED: NACL 0.9% 1,000 ML IV ONE (15:10)
[2021-11-22 15:41] LABS: BASOPHILS % (AUTO) 0.9 % (0.0-2.0); EOSINOPHILS # (AUTO) 0.2 K/uL (0-0.4); EOSINOPHILS % (AUTO) 3.6 % (0.0-4.0); HEMATOCRIT 34.1 % (36-52); HEMOGLOBIN 11.2 g/dL (12.0-18.0); LYMPHOCYTES # (AUTO) 1.3 K/uL (2.0-11.5); LYMPHOCYTES % (AUTO) 25.4 % (20.5-51.1); MEAN CORPUSCULAR HEMOGLOBIN 20 pg (27-31); MEAN CORPUSCULAR HGB CONC 33 g/dL (33-37); MEAN CORPUSCULAR VOLUME 60.8 fL (80-94); MONOCYTES # (AUTO) 0.4 K/uL (0.8-1.0); MONOCYTES % (AUTO) 8.2 % (1.7-9.3); NEUTROPHILS # (AUTO) 3.2 K/uL (1.8-7.7); NEUTROPHILS % (AUTO) 61.9 % (42.2-75.2); PLATELET COUNT (AUTO) 328 K/uL (140-450); WHITE BLOOD COUNT (AUTO) 5.2 K/uL (4.8-10.8)
[2021-11-22 16:02] LABS: CARBON DIOXIDE 21.4 mmol/L (21-32); CREATININE 0.7 mg/dL (0.6-1.3); POTASSIUM 3.4 mmol/L (3.5-5.1); TOTAL BILIRUBIN 0.8 mg/dL (0.0-1.0)
[2021-11-22] MEDS ORDERED: HEPARIN PER PHARMACY MC PRN ×2 (16:55→18:10)
[2021-11-22] MEDS ORDERED: hePARIN / DEXT 5% PREMIX 250 ML IV ONE (16:55)
[2021-11-22] MEDS ORDERED: ASPIRIN 325 MG TAB PO ONE (16:55)
[2021-11-22] MEDS ORDERED: SODIUM PHOS / POTASSIUM PHOS 1 PKT PDR PO SCH (17:00)
[2021-11-22] MEDS ORDERED: ACETAMINOPHEN 325 MG TAB PO PRN (18:05)
[2021-11-22] MEDS ORDERED: MAGNESIUM OXIDE 400 MG TAB PO PRN (18:05)
[2021-11-22] MEDS ORDERED: MORPHINE SULFATE 4 MG/ML SYR IVP PRN (18:05)
[2021-11-22] MEDS ORDERED: POTASSIUM CHLORIDE 10 MEQ TABER PO PRN (18:05)
[2021-11-22] MEDS ORDERED: LORazepam 1 MG TAB PO PRN (18:05)
[2021-11-22] MEDS ORDERED: ONDANSETRON 4 MG/2 ML VIAL IVP PRN (18:05)
[2021-11-22] MEDS ORDERED: NACL 0.9% 1,000 ML IV SCH (18:05)
[2021-11-22] MEDS ORDERED: hePARIN / DEXT 5% PREMIX 250 ML IV SCH ×2 (18:10→20:05)
--- NOTE | 2021-11-22 18:14 | NUR ---
PT REFUSING TO BE ADMITTED AT THIS TIME. DR. JUNIOR SPOKE TO PATIENT.
[2021-11-22] MEDS ORDERED: ASPIRIN 325 MG TAB ONE (18:23)
[2021-11-22] MEDS ORDERED: LORazepam 2 MG/ML VIAL IVP STA (18:27)
[2021-11-22 18:59] LABS: PROTHROMBIN TIME 9.7 secs (10.8-13.4)
[2021-11-22 19:45] VITALS: BP 145/82
--- NOTE | 2021-11-22 20:09 | NUR ---
AFTER HOURS PHARMACY CALLED TO CLARIFY HEP DRIP, STATED HE WILL CALL BACK WITH CLEAR ORDERS TO START DRIP.
--- NOTE | 2021-11-22 22:54 | NUR ---
PT IS A&O X4. PT STATES THIS HIS THIRD TIME BEING IN THE HOSPITAL AND WISHES TO GO HOME. PAGED REGARDING AMA.
--- NOTE | 2021-11-22 23:00 | NUR ---
PT PULLED OUT IV AND ELOPED.
--- NOTE | 2021-11-22 23:08 | NUR ---
CALLED BACK INFORMED ABOUT ELOPING, STATED OK WELL THERE IS NOTHING WE CAN DO.
== END 2021-11-22 23:00 | disposition left against medical advice (07) | DRG 770 ==
LOC: MED 12:10 → MTU 18:07
PROVIDERS: ADMIT Student in an Organized Health Care Education/Training Program; ATTEND Student in an Organized Health Care Education/Training Program
DX: F10.129 Alcohol abuse with intoxication, unspecified (principal); I21.4 Non-ST elevation (NSTEMI) myocardial infarction; E87.0 Hyperosmolality and hypernatremia; E83.51 Hypocalcemia; F43.10 Post-traumatic stress disorder, unspecified; I10 Essential (primary) hypertension; K21.9 Gastro-esophageal reflux disease without esophagitis; Y90.8 Blood alcohol level of 240 mg/100 ml or more; Z53.29 Procedure and treatment not carried out because of patient's decision for other reasons; Z78.1 Physical restraint status; E87.6 Hypokalemia
CPT/HCPCS: 36415; 71045; 80053; 83690; 84484; 85025; 85610; 85730; 93005; 96361; 96372; 96374; 96375; 99285; G0482; J1630; J1644; J2060; Q0092

== ENCOUNTER 2021-12-12 09:58 | Emergency (ER) | payer OTHER ==
[~2021-12-12] VITALS: Ht 175.3 cm; Wt 94.3 kg
[2021-12-12 10:22] VITALS: BP 200/122
--- NOTE | 2021-12-12 10:27 | NUR ---
C/O 5/10 MID CHEST PAIN, X 2 HOURS AGO. BP 200/122 AT THIS TIME. PMH: HTN, PTSD, FATTY LIVER
--- NOTE | 2021-12-12 10:44 | NUR ---
Patient being evaluated by DR GONZALEZ at TRIAGE ROOM.
[2021-12-12] MEDS ORDERED: cefTRIAXone 1,000 MG VIAL ONE ×2 (11:00→11:08)
[2021-12-12 12:31] LABS: BASOPHILS # (AUTO) 0.1 K/uL (0.00-0.22); BASOPHILS % (AUTO) 1.5 % (0.0-2.0); EOSINOPHILS # (AUTO) 0.7 K/uL (0-0.4); EOSINOPHILS % (AUTO) 11.8 % (0.0-4.0); HEMATOCRIT 38.2 % (36-52); HEMOGLOBIN 12.3 g/dL (12.0-18.0); LYMPHOCYTES # (AUTO) 1.2 K/uL (2.0-11.5); LYMPHOCYTES % (AUTO) 19.5 % (20.5-51.1); MEAN CORPUSCULAR HEMOGLOBIN 20 pg (27-31); MEAN CORPUSCULAR HGB CONC 32 g/dL (33-37); MEAN CORPUSCULAR VOLUME 61.3 fL (80-94); MONOCYTES # (AUTO) 0.5 K/uL (0.8-1.0); MONOCYTES % (AUTO) 8.9 % (1.7-9.3); NEUTROPHILS # (AUTO) 3.6 K/uL (1.8-7.7); NEUTROPHILS % (AUTO) 58.3 % (42.2-75.2); PLATELET COUNT (AUTO) 235 K/uL (140-450); RED BLOOD CELL COUNT(AUTO) 6.24 MIL/uL (4.20-6.10); RED CELL DISTRIBUTION WIDTH 17.6 % (11.6-13.7); WHITE BLOOD COUNT (AUTO) 6.1 K/uL (4.8-10.8)
[2021-12-12 13:00] LABS: ALBUMIN 4.3 g/dL (3.4-5.0); ANION GAP 15.1 (8-16); CARBON DIOXIDE 26.1 mmol/L (21-32); CREATININE 0.6 mg/dL (0.6-1.3); POTASSIUM 4.2 mmol/L (3.5-5.1); TOTAL BILIRUBIN 1.3 mg/dL (0.0-1.0)
[2021-12-12] MEDS ORDERED: LOVENOX 1MG/KG Q24H SUBQ SCH (13:45)
[2021-12-12] MEDS ORDERED: ASPIRIN 81 MG TAB.CHEW PO ONE (13:45)
--- NOTE | 2021-12-12 13:45 | NUR ---
FARIDA MENDIETA MD MADE AWARE.
--- NOTE | 2021-12-12 14:30 | NUR ---
Paige woody in [facility] - 12/12/21 at 1457 by MED1 PATIENT LEFT WITHOUT BEING SEEN BY DR. MADISON. NO FURTHER CARE PROVIDED FOR PATIENT.
[2021-12-12 14:57] VITALS: BP 200/122
== END 2021-12-12 13:45 | disposition left against medical advice (07) ==
LOC: MED 09:58
DX: I21.4 Non-ST elevation (NSTEMI) myocardial infarction (principal)
CPT/HCPCS: 36415; 71045; 80053; 83880; 84484; 85025; 93005; 99291; J0696

== ENCOUNTER 2022-04-26 12:32 | Observation (INO) | payer OTHER ==
[~2022-04-26] VITALS: Ht 175.3 cm; Wt 100.7 kg
[2022-04-26 12:44] VITALS: BP 188/100
[2022-04-26] MEDS ORDERED: LORazepam 2 MG/ML VIAL IVP ONE (13:05)
[2022-04-26 13:35] LABS: ALBUMIN 4.4 g/dL (3.4-5.0); ANION GAP 15.3 (8-16); CARBON DIOXIDE 23.5 mmol/L (21-32); CREATININE 0.9 mg/dL (0.6-1.3); POTASSIUM 3.8 mmol/L (3.5-5.1); TOTAL BILIRUBIN 1.6 mg/dL (0.0-1.0)
[2022-04-26 13:45] LABS: BASOPHILS # (AUTO) 0.1 K/uL (0.00-0.22); BASOPHILS % (AUTO) 1.2 % (0.0-2.0); EOSINOPHILS # (AUTO) 0.4 K/uL (0-0.4); EOSINOPHILS % (AUTO) 4.8 % (0.0-4.0); HEMATOCRIT 40.4 % (36-52); LYMPHOCYTES # (AUTO) 1.3 K/uL (2.0-11.5); LYMPHOCYTES % (AUTO) 18.2 % (20.5-51.1); MEAN CORPUSCULAR HEMOGLOBIN 19 pg (27-31); MEAN CORPUSCULAR HGB CONC 32 g/dL (33-37); MEAN CORPUSCULAR VOLUME 60.3 fL (80-94); MONOCYTES # (AUTO) 0.7 K/uL (0.8-1.0); MONOCYTES % (AUTO) 9.2 % (1.7-9.3); NEUTROPHILS # (AUTO) 4.9 K/uL (1.8-7.7); NEUTROPHILS % (AUTO) 66.6 % (42.2-75.2); PLATELET COUNT (AUTO) 198 K/uL (140-450); RED CELL DISTRIBUTION WIDTH 16.9 % (11.6-13.7); WHITE BLOOD COUNT (AUTO) 7.4 K/uL (4.8-10.8)
[2022-04-26] MEDS ORDERED: POTASSIUM CHLORIDE 10 MEQ TABER PO PRN (14:25)
[2022-04-26] MEDS ORDERED: ACETAMINOPHEN 325 MG TAB PO PRN (14:25)
[2022-04-26] MEDS ORDERED: ONDANSETRON 4 MG/2 ML VIAL IVP PRN (14:25)
[2022-04-26] MEDS ORDERED: MAGNESIUM OXIDE 400 MG TAB PO PRN (14:25)
[2022-04-26] MEDS ORDERED: MORPHINE SULFATE 4 MG/ML SYR IVP PRN (14:25)
[2022-04-26] MEDS ORDERED: LORazepam 1 MG TAB PO PRN (14:25)
[2022-04-26] MEDS ORDERED: HYDROcodone/APAP 5/325 MG 1 TAB TAB PO PRN (14:25)
[2022-04-26] MEDS: NACL 0.9% 1,000 ML IV SCH (15:03)
[2022-04-26] MEDS ORDERED: METO50TA20 PO (15:19)
[2022-04-26] MEDS ORDERED: ATOR40TA40 PO (15:19)
[2022-04-26] MEDS ORDERED: LOSA100T1 PO (15:19)
[2022-04-26] MEDS ORDERED: ASPI-1749 PO (15:19)
[2022-04-26] MEDS ORDERED: OMEP20EC11 PO (15:19)
[2022-04-26 16:00] VITALS: BP 165/100
[2022-04-26 20:00] VITALS: BP 161/89
[2022-04-27] VITALS: BP 152/98
[2022-04-27] MEDS: NACL 0.9% 1,000 ML IV SCH (03:04)
[2022-04-27 04:00] VITALS: BP 159/77
[2022-04-27 07:02] LABS: BASOPHILS # (AUTO) 0.1 K/uL (0.00-0.22); BASOPHILS % (AUTO) 1.2 % (0.0-2.0); EOSINOPHILS # (AUTO) 0.5 K/uL (0-0.4); HEMATOCRIT 37.8 % (36-52); LYMPHOCYTES # (AUTO) 1.3 K/uL (2.0-11.5); LYMPHOCYTES % (AUTO) 23.4 % (20.5-51.1); MEAN CORPUSCULAR HEMOGLOBIN 20 pg (27-31); MEAN CORPUSCULAR HGB CONC 32 g/dL (33-37); MEAN CORPUSCULAR VOLUME 61.5 fL (80-94); MONOCYTES # (AUTO) 0.5 K/uL (0.8-1.0); MONOCYTES % (AUTO) 8.9 % (1.7-9.3); NEUTROPHILS # (AUTO) 3.3 K/uL (1.8-7.7); NEUTROPHILS % (AUTO) 57.5 % (42.2-75.2); PLATELET COUNT (AUTO) 160 K/uL (140-450); RED BLOOD CELL COUNT(AUTO) 6.15 MIL/uL (4.20-6.10); RED CELL DISTRIBUTION WIDTH 17.1 % (11.6-13.7); WHITE BLOOD COUNT (AUTO) 5.7 K/uL (4.8-10.8)
[2022-04-27 07:38] LABS: ALBUMIN 3.5 g/dL (3.4-5.0); ANION GAP 12.8 (8-16); CARBON DIOXIDE 25.7 mmol/L (21-32); CREATININE 0.8 mg/dL (0.6-1.3); POTASSIUM 3.5 mmol/L (3.5-5.1); TOTAL BILIRUBIN 2.3 mg/dL (0.0-1.0)
[2022-04-27 08:00] VITALS: BP 166/90
[2022-04-27] MEDS ORDERED: hydrALAZINE 25 MG TAB PO PRN (12:10)
[2022-04-27] MEDS ORDERED: LOSARTAN 50 MG TAB PO SCH (12:10)
[2022-04-27] MEDS ORDERED: CARV6.25 PO (13:42)
[2022-04-27] MEDS ORDERED: LOSA100T1 PO (13:43)
[2022-04-27] MEDS ORDERED: carvediloL 6.25 MG TAB PO SCH (21:00)
[2022-04-28] MEDS ORDERED: ECOTRIN 81 MG TABEC PO SCH (09:00)
== END 2022-04-27 14:51 | disposition home or self-care (01) ==
LOC: MED 12:32 → MTU 14:26
PROVIDERS: ADMIT Student in an Organized Health Care Education/Training Program; ATTEND Student in an Organized Health Care Education/Training Program
DX: R07.89 Other chest pain (principal); Z20.822 Contact with and (suspected) exposure to COVID-19; I10 Essential (primary) hypertension; E78.5 Hyperlipidemia, unspecified; G47.30 Sleep apnea, unspecified; E66.9 Obesity, unspecified; R79.89 Other specified abnormal findings of blood chemistry; F17.210 Nicotine dependence, cigarettes, uncomplicated; I24.9 Acute ischemic heart disease, unspecified; F10.239 Alcohol dependence with withdrawal, unspecified; F41.9 Anxiety disorder, unspecified; F43.10 Post-traumatic stress disorder, unspecified; G47.33 Obstructive sleep apnea (adult) (pediatric); Z79.82 Long term (current) use of aspirin; Z79.899 Other long term (current) drug therapy
CPT/HCPCS: 36415; 71045; 80053; 83880; 84484; 85025; 87081; 87426; 93005; 96361; 96374; 96375; 99285; G0378; J2060; J2270; J7030; Q0092

== ENCOUNTER 2023-06-01 08:54 | Observation (INO) | payer OTHER ==
[~2023-06-01] VITALS: Ht 175.3 cm; Wt 90.7 kg
[2023-06-01] VITALS (8 sets, daily range): BP systolic 140–179; BP diastolic 84–124; PULSE 53–74; RESP 17–18; TEMP 97.1–97.9; O2SAT 96–100
[~2023-06-01 08:54] MED LIST changes: +ASPI-1749 PO; +ATOR40TA40 PO; +CARV6.25 PO; -HYDR-4004 PO; -LISI-487 PO; +LOSA100T2 PO
--- NOTE | 2023-06-01 09:44 | NUR ---
MD HIDALGO AT BEDSIDE FOR EVALUATION
--- NOTE | 2023-06-01 09:45 | NUR ---
lab at bedside
[2023-06-01] MEDS ORDERED: DIAZEPAM PFS 10 MG/2 ML SYR IVP ONE (09:50)
--- NOTE | 2023-06-01 09:50 | NUR ---
42YO MALE PT C/O TIGHT CHEST PAIN AND INCREASED BP XTODAY. REPORT SUDDEN ONSET ON WAKING UP W/ BP OF 179/101. STATES TAKING NITROGLYCERINX1 W/ MILD CP RELIEF. DENIES N/V/D, FEVER OR CHILLS. STATES PREVIOUS S/S X1 YEAR AGO. STATES BEING DAILY/HEAVY ALCOHOL DRINKER , LAST DRINK BEING X1DAY AGO. 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 HOB POSITIONED PER COMFORT. CALL LIGHT WITHIN REACH. HX: HTN, SLEEP APNEA, FATTY LIVER, PTSD, DEGENERATE DISC, ANXIETY NKA
[2023-06-01 10:06] LABS: BASOPHILS # (AUTO) 0.1 K/uL (0.00-0.22); EOSINOPHILS # (AUTO) 0.6 K/uL (0-0.4); EOSINOPHILS % (AUTO) 8.4 % (0.0-4.0); HEMATOCRIT 39.1 % (36-52); HEMOGLOBIN 12.6 g/dL (12.0-18.0); LYMPHOCYTES # (AUTO) 1.3 K/uL (2.0-11.5); MEAN CORPUSCULAR HEMOGLOBIN 20 pg (27-31); MEAN CORPUSCULAR HGB CONC 32 g/dL (33-37); MEAN CORPUSCULAR VOLUME 60.7 fL (80-94); MONOCYTES # (AUTO) 0.7 K/uL (0.8-1.0); MONOCYTES % (AUTO) 9.9 % (1.7-9.3); NEUTROPHILS # (AUTO) 4.2 K/uL (1.8-7.7); NEUTROPHILS % (AUTO) 61.7 % (42.2-75.2); PLATELET COUNT (AUTO) 182 K/uL (140-450); RED BLOOD CELL COUNT(AUTO) 6.44 MIL/uL (4.20-6.10); RED CELL DISTRIBUTION WIDTH 17.7 % (11.6-13.7); WHITE BLOOD COUNT (AUTO) 6.9 K/uL (4.8-10.8)
[2023-06-01 10:25] LABS: BARBITURATE, URINE NEGATIVE ng/ml (NEG <=200)
[2023-06-01 10:26] LABS: BENZODIAZEPINE, URINE NEGATIVE ng/mL (NEG <=200); CANNABINOID, URINE NEGATIVE ng/mL (NEG <=50); COCAINE, URINE NEGATIVE ng/mL (NEG <=300); OPIATE, URINE NEGATIVE ng/mL (NEG <=2000); PHENCYCLIDINE SCREEN,URINE NEGATIVE ng/mL (NEG <=25)
[2023-06-01 10:36] LABS: ALBUMIN 4.4 g/dL (3.4-5.0); ANION GAP 15.1 (8-16); CARBON DIOXIDE 26.1 mmol/L (21-32); CREATININE 0.6 mg/dL (0.6-1.3); POTASSIUM 5.2 mmol/L (3.5-5.1); TOTAL BILIRUBIN 1.6 mg/dL (0.0-1.0)
[2023-06-01 10:41] LABS: MAGNESIUM 1.8 mg/dL (1.8-2.4); PHOSPHORUS 3.3 mg/dL (2.5-4.9)
[2023-06-01] MEDS ORDERED: ASPIRIN 81 MG TAB.CHEW PO ONE (10:55)
[2023-06-01] MEDS ORDERED: LABETALOL 20 MG/4 ML VIAL IVP ONE (11:00)
[2023-06-01] MEDS ORDERED: ACETAMINOPHEN 325 MG TAB PO PRN (11:20)
[2023-06-01] MEDS ORDERED: MORPHINE SULFATE 2 MG/ML SYR IVP PRN (11:20)
[2023-06-01] MEDS ORDERED: HYDROcodone/APAP 5/325 MG 1 TAB TAB PO PRN (11:20)
[2023-06-01] MEDS ORDERED: ONDANSETRON 4 MG/2 ML VIAL IVP PRN (11:30)
[2023-06-01] MEDS ORDERED: LORazepam 1 MG TAB PO PRN ×2 (11:30)
--- NOTE | 2023-06-01 11:39 | NUR ---
MD URBANO AT BEDSIDE FOR EVALUATION
[2023-06-01 11:51] LABS: CHOL/HDL RATIO 2.1 (1-4.5)
[2023-06-01] MEDS: NACL 0.9% 1,000 ML IV SCH ×2 (11:53→23:29)
--- NOTE | 2023-06-01 12:02 | NUR ---
Patient will be admitted to care of MD URBANO. Admited to TELE. Will go to [id number]. Belongings list completed. Report to GRACIELA DEVINE.
--- NOTE | 2023-06-01 12:30 | NUR ---
PT ARRIVED FROM ER, GOT REPORT FROM THE NURSE, ASSESSMENT DONE , V.S OBTAINED, ORIENTATION TO THE ROOM GIVEN CALL LIGHT IN REACH, PT ALERT ORIENTED, NO SOB .[id number]
--- NOTE | 2023-06-01 12:37 | NUR ---
The patient's care was reviewed and supervised by [facility] ED, RN.
--- NOTE | 2023-06-01 12:39 | NUR ---
PATIENT HAS BEEN SCREENED AND CATEGORIZED LOW NUTRITION RISK. PATIENT WILL BE SEEN WITHIN 7 DAYS OF ADMISSION. 06/08/[address]
[2023-06-01] MEDS: GABAPENTIN 300 MG CAP PO SCH ×2 (13:29→17:08)
--- NOTE | 2023-06-01 13:31 | NUR ---
PT REQUESTS ATIVAN FOR WITHDRAWAL LOOKS LIKE IT IS SEVER , PT HAS HAND SHAKING TEARING, [id number]
--- NOTE | 2023-06-01 17:09 | NUR ---
PT SAYS THAT THE ATIVAN HELPED HIM, [id number]
--- NOTE | 2023-06-01 19:24 | NUR ---
gave report to the night nurse, pt comfortable no c/p now.[email or web address]
--- NOTE | 2023-06-01 19:30 | NUR ---
RECEIVED REPORT FROM DAY SHIFT RN FOR CONTINUITY OF CARE. PT IS AWAKE AND ALERT. RESTING IN BED. NOT IN ANY DISTRESS. PT CAME IN WITH COMPLAINS OF CHEST PAIN. DENIES ANY CHEST PAIN AT THIS TIME. POC DISCUSSED. CALL LIGHT WITHIN REACH. WILL CONTINUE TO MONITOR THE PT.
[2023-06-01] MEDS: METOPROLOL 25 MG TAB PO SCH (20:58)
[2023-06-02] VITALS (8 sets, daily range): BP systolic 133–159; BP diastolic 83–99; PULSE 59–80; RESP 16–20; TEMP 97.3–97.8; O2SAT 97–100
--- NOTE | 2023-06-02 01:00 | NUR ---
OBSERVED PT. PT IS SLEEPING IN BED. NOT IN ANY ACUTE DISTRESS. BREATHING EVEN AND UNLABORED. SAFETY MEASURES TAKEN. CALL LIGHT WITHIN REACH. WILL CONTINUE TO MONITOR THE PT.
--- NOTE | 2023-06-02 02:39 | NUR ---
PT COMPLAINED OF CHEST PAIN. NON-RADIATING. PT WANTED PAIN MEDICATION. NORCO WAS GIVEN. NO OTHER COMPLAINS. CALL LIGHT WITHIN REACH.
[2023-06-02 06:39] LABS: BASOPHILS # (AUTO) 0.1 K/uL (0.00-0.22); EOSINOPHILS # (AUTO) 0.5 K/uL (0-0.4); EOSINOPHILS % (AUTO) 8.4 % (0.0-4.0); HEMOGLOBIN 11.7 g/dL (12.0-18.0); LYMPHOCYTES # (AUTO) 1.5 K/uL (2.0-11.5); LYMPHOCYTES % (AUTO) 22.9 % (20.5-51.1); MEAN CORPUSCULAR HEMOGLOBIN 20 pg (27-31); MEAN CORPUSCULAR HGB CONC 32 g/dL (33-37); MEAN CORPUSCULAR VOLUME 60.7 fL (80-94); MONOCYTES # (AUTO) 0.6 K/uL (0.8-1.0); MONOCYTES % (AUTO) 8.9 % (1.7-9.3); NEUTROPHILS # (AUTO) 3.8 K/uL (1.8-7.7); NEUTROPHILS % (AUTO) 58.8 % (42.2-75.2); PLATELET COUNT (AUTO) 146 K/uL (140-450); RED BLOOD CELL COUNT(AUTO) 5.93 MIL/uL (4.20-6.10); RED CELL DISTRIBUTION WIDTH 17.3 % (11.6-13.7); WHITE BLOOD COUNT (AUTO) 6.4 K/uL (4.8-10.8)
--- NOTE | 2023-06-02 07:04 | NUR ---
receive the patient from the maintenance mechanic 2nd shift sammie Trujillo in rm [id number] [id number] with admitting diagnosis of chest pain . no complain of pain at this time .will continue to monitor
[2023-06-02 07:06] LABS: ALBUMIN 3.6 g/dL (3.4-5.0); ANION GAP 13.3 (8-16); CARBON DIOXIDE 25.1 mmol/L (21-32); CREATININE 0.7 mg/dL (0.6-1.3); MAGNESIUM 1.7 mg/dL (1.8-2.4); PHOSPHORUS 3.4 mg/dL (2.5-4.9); POTASSIUM 3.4 mmol/L (3.5-5.1); TOTAL BILIRUBIN 1.4 mg/dL (0.0-1.0)
--- NOTE | 2023-06-02 07:15 | NUR ---
ENDORSED PT TO DAY SHIFT RN FOR CONTINUITY OF CARE. PT IS STABLE.
[2023-06-02] MEDS ORDERED: ATORVASTATIN 20 MG TAB PO SCH (09:00)
[2023-06-02] MEDS ORDERED: lisinopriL 20 MG TAB PO SCH (09:00)
[2023-06-02] MEDS ORDERED: THIAMINE 100 MG TAB PO SCH (09:00)
[2023-06-02] MEDS ORDERED: ASPIRIN 81 MG TAB.CHEW PO SCH (09:00)
[2023-06-02] MEDS ORDERED: FOLIC ACID 1 MG TAB PO SCH (09:00)
[2023-06-02] MEDS ORDERED: MULTIVITAMIN 1 TAB PO SCH (09:00)
[2023-06-02] MEDS ORDERED: COMMUNICATION ORDER MC PRN (09:05)
[2023-06-02] MEDS ORDERED: EENT NS PRN (09:20)
[2023-06-02] MEDS: GABAPENTIN 300 MG CAP PO SCH ×3 (09:43→17:24)
[2023-06-02] MEDS: METOPROLOL 25 MG TAB PO SCH (09:44)
[2023-06-02] MEDS ORDERED: POTASSIUM CHLORIDE 10 MEQ TABER PO SCH (10:15)
--- NOTE | 2023-06-02 10:26 | NUR ---
Md Solorio made rounds
[2023-06-02] MEDS: NACL 0.9% 1,000 ML IV SCH (12:21)
--- NOTE | 2023-06-02 13:06 | NUR ---
Pt. is a high-level functioning alcoholic. PT. gets services at 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 [place] for the alcohol cravings and for anxiety Gabapentin, sees a psychiatrist and has a therapist he sees each Th. Pt is looking into marriage counseling. Lastly Pt. has to clear up a battery misdemeanor (unable to recall or share incident that took place at home. He was arrested.) Pt. is insightful of his alcohol dependence. Pt. stated he drinks up to 18 shots daily. MDS NURSE provided pt with additional resources.
--- NOTE | 2023-06-02 18:51 | NUR ---
will endorse to manager of pmo rn for continuity of care . will be discharge home
--- NOTE | 2023-06-02 19:30 | NUR ---
RECEIVED REPORT FROM DAY SHIFT RN FOR CONTINUITY OF CARE. PT IS RESTING IN BED. DENIES ANY PAIN. NOT IN ANY DISTRESS. SPOTTER DRIVER CLEARED PT. DR. ANDERSON WAS NOTIFIED BY DAY SHIFT RN AND TO PUT IN DISCHARGE ORDERS. POC DISCUSSED WITH PT.
[2023-06-02] MEDS ORDERED: carvediloL 6.25 MG TAB PO SCH (21:00)
[2023-06-02] MEDS ORDERED: LOSARTAN 50 MG TAB PO SCH (21:00)
--- NOTE | 2023-06-02 22:05 | NUR ---
ALL DISCHARGE PAPERWORK DONE. PT WAS ESCORTED OUT OF THE HOSPITAL SAFELY. PT IS STABLE. PICKED UP PT.
== END 2023-06-02 22:05 | disposition home or self-care (01) ==
LOC: MED 08:54 → MTU 11:24
PROVIDERS: ADMIT Student in an Organized Health Care Education/Training Program; ATTEND Student in an Organized Health Care Education/Training Program
DX: R07.89 Other chest pain (principal); F10.239 Alcohol dependence with withdrawal, unspecified; I16.0 Hypertensive urgency; E87.6 Hypokalemia; I21.4 Non-ST elevation (NSTEMI) myocardial infarction; R74.01 Elevation of levels of liver transaminase levels; F41.9 Anxiety disorder, unspecified; I10 Essential (primary) hypertension; E78.5 Hyperlipidemia, unspecified; G47.30 Sleep apnea, unspecified; G47.33 Obstructive sleep apnea (adult) (pediatric); F43.10 Post-traumatic stress disorder, unspecified; F17.200 Nicotine dependence, unspecified, uncomplicated; Z79.899 Other long term (current) drug therapy
CPT/HCPCS: 36415; 71045; 80053; 80061; 80305; 83735; 83880; 84100; 84484; 85025; 87081; 93005; 96361; 96372; 96374; 96375; 99285; C8929; G0378; G0482; J1644; J3360; J3490; Q0092

== ENCOUNTER 2023-07-22 10:43 | Emergency (ER) | payer OTHER ==
[~2023-07-22] VITALS: Ht 165.1 cm; Wt 100.7 kg
[~2023-07-22 10:43] MED LIST changes: -ACAM333T PO; -ATOR40TA40 PO; -GABA400C PO; -OMEP20EC11 PO
[2023-07-22 11:02] VITALS: BP 162/106; PULSE 92; RESP 16; TEMP 98; O2SAT 98
[2023-07-22] MEDS ORDERED: KETOROLAC 30 MG/ML VIAL IM ONE (11:35)
[2023-07-22] MEDS ORDERED: ACET-10509 PO (11:46)
[2023-07-22] MEDS ORDERED: CAPS1ADH5 TP (11:46)
[2023-07-22] MEDS ORDERED: IBUP-2213 PO (11:46)
[2023-07-22] MEDS ORDERED: DICL100G5 TP (11:46)
[2023-07-22 11:57] VITALS: BP 155/65; PULSE 92; RESP 16; TEMP 98; O2SAT 98
== END 2023-07-22 11:59 | disposition home or self-care (01) ==
LOC: MED 10:43
DX: M51.36 Other intervertebral disc degeneration, lumbar region (principal); I11.0 Hypertensive heart disease with heart failure; S39.012A Strain of muscle, fascia and tendon of lower back, initial encounter; X58.XXXA Exposure to other specified factors, initial encounter; Y93.89 Activity, other specified; Y92.89 Other specified places as the place of occurrence of the external cause; Y99.8 Other external cause status
CPT/HCPCS: 96372; 99283; J1885

== ENCOUNTER 2023-11-29 14:52 | Emergency (ER) | payer OTHER ==
[~2023-11-29] VITALS: Ht 175.3 cm; Wt 98.9 kg
[~2023-11-29 14:52] MED LIST changes: +ACET-10509 PO; +CAPS1ADH5 TP; +DICL100G32 TP; +IBUP-2213 PO; +LOSA-272 PO; -LOSA100T2 PO
[2023-11-29 15:06] VITALS: BP 197/116; RESP 17; TEMP 98.3
[2023-11-29] MEDS ORDERED: diazePAM 5 MG TAB PO ONE (15:45)
[2023-11-29] MEDS ORDERED: amLODIPine 5 MG TAB PO ONE (15:55)
[2023-11-29] MEDS ORDERED: [UNRECOGNIZED DRUG - CODE] PO (16:02)
[2023-11-29] MEDS ORDERED: FAMO-90 PO (16:05)
[2023-11-29] MEDS ORDERED: HYDR25CA1 PO (16:05)
[2023-11-29] MEDS ORDERED: AMLO-271 PO (16:05)
[2023-11-29] MEDS ORDERED: ONDA-188 PO (16:05)
== END 2023-11-29 18:22 | disposition home or self-care (01) ==
LOC: MED 14:52
DX: F10.239 Alcohol dependence with withdrawal, unspecified (principal); I10 Essential (primary) hypertension; Z79.899 Other long term (current) drug therapy; Z79.82 Long term (current) use of aspirin; Z79.1 Long term (current) use of non-steroidal anti-inflammatories (NSAID); Y90.9 Presence of alcohol in blood, level not specified
CPT/HCPCS: 99283

== ENCOUNTER 2023-12-28 18:56 | Inpatient (IN) | payer OTHER ==
[~2023-12-28] VITALS: Ht 175.3 cm; Wt 98.4 kg
[~2023-12-28 18:56] MED LIST changes: +AMLO-271 PO; +CHLO-836 PO; +FAMO-90 PO; +HYDR25CA1 PO; -LIB25 PO; +ONDA-188 PO; +[UNRECOGNIZED DRUG - CODE] PO
[2023-12-28 19:09] VITALS: BP 128/99; PULSE 86; RESP 25; TEMP 98.2; O2SAT 99
[2023-12-28] MEDS: NACL 0.9% 1,000 ML IV ONE (19:46)
[2023-12-28 20:03] LABS: APPEARANCE,URINE CLEAR (CLEAR); BILIRUBIN,URINE NEGATIVE (NEGATIVE); BLOOD, URINE NEGATIVE (NEGATIVE); COLOR,URINE YELLOW (YELLOW); LEUKOCYTE ESTERASE ,URINE NEGATIVE (NEGATIVE); NITRITE, URINE NEGATIVE (NEGATIVE); PH,URINE 6.5 (5.0-9.0); PROTEIN,URINE NEGATIVE (NEGATIVE); UGLUCOSE NEGATIVE (NEGATIVE); UROBILINOGEN,URINE 0.2 EU/dL (0.2 - 1)
[2023-12-28 20:11] LABS: ANION GAP 16.8 (8-16); CALCIUM 10.4 mg/dL (8.5-10.1); CARBON DIOXIDE 26.9 mmol/L (21-32); CREATININE 0.8 mg/dL (0.6-1.3); POTASSIUM 3.7 mmol/L (3.5-5.1)
[2023-12-28 20:16] LABS: AMPHETAMINE, URINE NEGATIVE ng/ml (NEG <=1000); BARBITURATE, URINE NEGATIVE ng/ml (NEG <=200); BENZODIAZEPINE, URINE POSITIVE ng/mL (NEG <=200); CANNABINOID, URINE NEGATIVE ng/mL (NEG <=50); COCAINE, URINE NEGATIVE ng/mL (NEG <=300); OPIATE, URINE NEGATIVE ng/mL (NEG <=2000); PHENCYCLIDINE SCREEN,URINE NEGATIVE ng/mL (NEG <=25)
[2023-12-28 20:30] LABS: PHOSPHORUS 3.3 mg/dL (2.5-4.9)
[2023-12-28 20:56] LABS: BASOPHILS # (AUTO) 0.1 K/uL (0.00-0.22); BASOPHILS % (AUTO) 1.4 % (0.0-2.0); EOSINOPHILS # (AUTO) 0.5 K/uL (0-0.4); EOSINOPHILS % (AUTO) 6.6 % (0.0-4.0); HEMOGLOBIN 13.8 g/dL (12.0-18.0); LYMPHOCYTES # (AUTO) 2.6 K/uL (2.0-11.5); LYMPHOCYTES % (AUTO) 33.7 % (20.5-51.1); MEAN CORPUSCULAR HEMOGLOBIN 20 pg (27-31); MEAN CORPUSCULAR HGB CONC 32 g/dL (33-37); MEAN CORPUSCULAR VOLUME 62.2 fL (80-94); MONOCYTES # (AUTO) 0.7 K/uL (0.8-1.0); MONOCYTES % (AUTO) 9.1 % (1.7-9.3); NEUTROPHILS # (AUTO) 3.8 K/uL (1.8-7.7); NEUTROPHILS % (AUTO) 49.2 % (42.2-75.2); PLATELET COUNT (AUTO) 216 K/uL (140-450); RED BLOOD CELL COUNT(AUTO) 6.91 MIL/uL (4.20-6.10); RED CELL DISTRIBUTION WIDTH 18.4 % (11.6-13.7); WHITE BLOOD COUNT (AUTO) 7.8 K/uL (4.8-10.8)
[2023-12-28] MEDS: DIAZEPAM PFS 10 MG/2 ML SYR IVP ONE (20:57)
[2023-12-28 21:13] LABS: ANISOCYTOSIS 1+; OVALOCYTES 1+; POIKILOCYTOSIS 2+; STOMATOCYTES 2+; TARGET CELLS 1+
[2023-12-28] MEDS ORDERED: chlordiazePOXIDE 25 MG CAP PO PRN (22:00)
[2023-12-28] MEDS: FOLIC ACID 1 MG TAB PO SCH (22:56)
[2023-12-28] MEDS: chlordiazePOXIDE 25 MG CAP PO SCH (22:56)
[2023-12-28] MEDS: DEXT 5% / NACL 0.45% 1,000 ML IV ONE (23:00)
[2023-12-28] MEDS: THIAMINE 200 MG/2 ML VIAL IM SCH (23:01)
[2023-12-29] VITALS (7 sets, daily range): BP systolic 119–157; BP diastolic 68–99; PULSE 68–90; RESP 18–20; TEMP 97.6–98.4; O2SAT 92–96
[2023-12-29] MEDS: LORazepam 2 MG/ML VIAL IVP PRN (02:06)
[2023-12-29] MEDS: DEXT 5% / NACL 0.45% 1,000 ML IV SCH (08:31)
[2023-12-29 09:36] LABS: BASOPHILS # (AUTO) 0.1 K/uL (0.00-0.22); BASOPHILS % (AUTO) 1.3 % (0.0-2.0); EOSINOPHILS # (AUTO) 0.4 K/uL (0-0.4); EOSINOPHILS % (AUTO) 8.2 % (0.0-4.0); HEMATOCRIT 39.5 % (36-52); HEMOGLOBIN 12.9 g/dL (12.0-18.0); LYMPHOCYTES # (AUTO) 1.6 K/uL (2.0-11.5); LYMPHOCYTES % (AUTO) 30.4 % (20.5-51.1); MEAN CORPUSCULAR HEMOGLOBIN 20 pg (27-31); MEAN CORPUSCULAR HGB CONC 33 g/dL (33-37); MEAN CORPUSCULAR VOLUME 61.7 fL (80-94); MONOCYTES # (AUTO) 0.5 K/uL (0.8-1.0); MONOCYTES % (AUTO) 9.1 % (1.7-9.3); NEUTROPHILS # (AUTO) 2.7 K/uL (1.8-7.7); PLATELET COUNT (AUTO) 223 K/uL (140-450); RED BLOOD CELL COUNT(AUTO) 6.39 MIL/uL (4.20-6.10); RED CELL DISTRIBUTION WIDTH 18.5 % (11.6-13.7); WHITE BLOOD COUNT (AUTO) 5.3 K/uL (4.8-10.8)
[2023-12-29 09:52] LABS: ALBUMIN 3.9 g/dL (3.4-5.0); ANION GAP 15.3 (8-16); CALCIUM 8.8 mg/dL (8.5-10.1); CREATININE 0.6 mg/dL (0.6-1.3); POTASSIUM 3.3 mmol/L (3.5-5.1); TOTAL BILIRUBIN 1.3 mg/dL (0.0-1.0); TOTAL PROTEIN, SERUM 7.9 g/dL (6.4-8.2)
[2023-12-29 09:56] LABS: LACTIC ACID 2.3 mmol/L (0.4-2.0)
[2023-12-29] MEDS: FAMOTIDINE 20 MG/2 ML VIAL IV SCH (21:32)
[2023-12-30] VITALS: BP 134/66; PULSE 63; PULSE 76; RESP 16; TEMP 98.8; O2SAT 97
[2023-12-30 04:00] VITALS: BP 148/88; PULSE 59; PULSE 73; RESP 18; TEMP 98.4; O2SAT 96
[2023-12-30 05:22] LABS: BASOPHILS # (AUTO) 0.1 K/uL (0.00-0.22); BASOPHILS % (AUTO) 0.8 % (0.0-2.0); EOSINOPHILS # (AUTO) 0.4 K/uL (0-0.4); EOSINOPHILS % (AUTO) 5.7 % (0.0-4.0); HEMATOCRIT 39.6 % (36-52); HEMOGLOBIN 12.8 g/dL (12.0-18.0); LYMPHOCYTES # (AUTO) 1.4 K/uL (2.0-11.5); LYMPHOCYTES % (AUTO) 20.5 % (20.5-51.1); MEAN CORPUSCULAR HEMOGLOBIN 20 pg (27-31); MEAN CORPUSCULAR HGB CONC 32 g/dL (33-37); MEAN CORPUSCULAR VOLUME 62.5 fL (80-94); MONOCYTES # (AUTO) 0.6 K/uL (0.8-1.0); MONOCYTES % (AUTO) 8.3 % (1.7-9.3); NEUTROPHILS # (AUTO) 4.4 K/uL (1.8-7.7); NEUTROPHILS % (AUTO) 64.7 % (42.2-75.2); PLATELET COUNT (AUTO) 195 K/uL (140-450); RED BLOOD CELL COUNT(AUTO) 6.34 MIL/uL (4.20-6.10); RED CELL DISTRIBUTION WIDTH 17.8 % (11.6-13.7); WHITE BLOOD COUNT (AUTO) 6.8 K/uL (4.8-10.8)
[2023-12-30 06:37] LABS: ALBUMIN 3.5 g/dL (3.4-5.0); ANION GAP 13.8 (8-16); CALCIUM 8.8 mg/dL (8.5-10.1); CARBON DIOXIDE 27.4 mmol/L (21-32); CREATININE 0.7 mg/dL (0.6-1.3); POTASSIUM 3.2 mmol/L (3.5-5.1); TOTAL BILIRUBIN 2.2 mg/dL (0.0-1.0); TOTAL PROTEIN, SERUM 7.4 g/dL (6.4-8.2)
[2023-12-30 08:00] VITALS: BP 127/80; PULSE 61; PULSE 66; PULSE 75; RESP 17; RESP 18; TEMP 98; O2SAT 98; O2SAT 99
[2023-12-30] MEDS: ENOXAPARIN 40 MG/0.4 ML SYR SUBQ SCH (08:43)
[2023-12-30 12:00] VITALS: BP 125/77; PULSE 65; PULSE 66; RESP 17; TEMP 97.9; O2SAT 98
[2023-12-30] MEDS ORDERED: MAG SULF 2000 MG/WATER PREMIX 50 ML IV PRN (14:25)
[2023-12-30] MEDS ORDERED: ONDANSETRON 4 MG/2 ML VIAL IVP PRN (14:25)
[2023-12-30] MEDS: POTASSIUM CHLORIDE 10 MEQ TABER PO PRN (15:43)
[2023-12-30 16:00] VITALS: BP 153/95; PULSE 79; RESP 18; TEMP 97.8; O2SAT 99
[2023-12-30 20:00] VITALS: BP 141/86; PULSE 74; PULSE 77; RESP 18; TEMP 97.6; O2SAT 96
[2023-12-30] MEDS: ZOLPIDEM 10 MG TAB PO PRN (20:35)
[2023-12-31] VITALS: BP 147/89; PULSE 67; PULSE 73; RESP 18; TEMP 97.5; O2SAT 93
[2023-12-31 04:00] VITALS: BP 128/84; PULSE 60; PULSE 65; RESP 18; TEMP 97.8; O2SAT 96
[2023-12-31 06:20] LABS: BASOPHILS # (AUTO) 0.1 K/uL (0.00-0.22); BASOPHILS % (AUTO) 0.9 % (0.0-2.0); EOSINOPHILS # (AUTO) 0.5 K/uL (0-0.4); EOSINOPHILS % (AUTO) 7.6 % (0.0-4.0); HEMATOCRIT 39.1 % (36-52); HEMOGLOBIN 12.6 g/dL (12.0-18.0); LYMPHOCYTES # (AUTO) 1.5 K/uL (2.0-11.5); LYMPHOCYTES % (AUTO) 23.9 % (20.5-51.1); MEAN CORPUSCULAR HEMOGLOBIN 20 pg (27-31); MEAN CORPUSCULAR HGB CONC 32 g/dL (33-37); MEAN CORPUSCULAR VOLUME 63.1 fL (80-94); MONOCYTES # (AUTO) 0.6 K/uL (0.8-1.0); MONOCYTES % (AUTO) 9.9 % (1.7-9.3); NEUTROPHILS # (AUTO) 3.5 K/uL (1.8-7.7); NEUTROPHILS % (AUTO) 57.7 % (42.2-75.2); PLATELET COUNT (AUTO) 172 K/uL (140-450); RED CELL DISTRIBUTION WIDTH 18.5 % (11.6-13.7); WHITE BLOOD COUNT (AUTO) 6.1 K/uL (4.8-10.8)
[2023-12-31 06:32] LABS: ALBUMIN 3.4 g/dL (3.4-5.0); ANION GAP 13.5 (8-16); CALCIUM 8.8 mg/dL (8.5-10.1); CARBON DIOXIDE 25.1 mmol/L (21-32); CREATININE 0.7 mg/dL (0.6-1.3); POTASSIUM 3.6 mmol/L (3.5-5.1); TOTAL BILIRUBIN 1.9 mg/dL (0.0-1.0); TOTAL PROTEIN, SERUM 7.3 g/dL (6.4-8.2)
[2023-12-31 08:00] VITALS: BP 144/77; PULSE 70; RESP 17; TEMP 97.4; O2SAT 97
[2023-12-31] MEDS ORDERED: GABA300C PO (08:27)
[2023-12-31] MEDS ORDERED: FOLI1TAB90 PO (08:31)
[2023-12-31] MEDS ORDERED: THIA100T45 PO (08:31)
[2023-12-31 10:07] VITALS: BP 144/77; PULSE 65; RESP 17; TEMP 97.4
== END 2023-12-31 11:05 | disposition home or self-care (01) | DRG 641 ==
LOC: MED 18:56 → MTU 21:56 → MMU 23:10 → MTU 23:32
PROVIDERS: ADMIT Family Medicine; ATTEND Family Medicine
DX: E87.21 Acute metabolic acidosis (principal); F10.139 Alcohol abuse with withdrawal, unspecified; I10 Essential (primary) hypertension; F43.10 Post-traumatic stress disorder, unspecified; E66.9 Obesity, unspecified; F10.129 Alcohol abuse with intoxication, unspecified; Y90.9 Presence of alcohol in blood, level not specified; Z68.32 Body mass index [BMI] 32.0-32.9, adult
CPT/HCPCS: 36415; 71045; 80048; 80053; 80305; 81003; 83605; 83690; 83735; 84100; 85025; 87081; 93005; 96372; 96374; 99285; G0482; J1650; J2060; J3360; J3411; J3490